=== PATIENT | male | born 1950 | race Caucasian/White ===

== ENCOUNTER 2021-06-21 21:10 | Emergency (ER) | payer MEDICARE, OTHER ==
[2021-06-21] MEDS ORDERED: Sodium Chloride 0.9% 1,000 ML ONE (21:44)
[2021-06-21] MEDS ORDERED: Ketorolac Tromethamine 30 MG/ML VIAL ONE (21:44)
[2021-06-21 21:57] LABS: Hemoglobin 18.5 g/dL (14.0-18.0); Mean Corpuscular HGB CONC 32.9 g/dL (32.0-36.0); Mean Corpuscular Hemoglobin 30.1 pg (27.0-31.0); Mean Corpuscular Volume 91.3 fL (78.0-98.0); Mean Platelet Volume 7.4 fL (7.4-10.4); Platelet Count 266 thou/uL (130-400); RBC Distribution Width 11.2 % (11.5-14.5); Red Blood Cell (RBC) Count 6.13 mill/uL (4.70-6.10); White Blood Cell (WBC) Count 19.7 thou/uL (4.8-10.8)
[2021-06-21 22:05] LABS: Band 12 % (5-11); Eosinophils 1 % (0-10); Lymphocytes 23 % (21-51); MDiff Complete? YES; Metamyelocyte 2 % (0-0); Monocytes 8 % (0-10); Neutrophil 54 % (42-75); Platelet Morphology Comment Appears Adequate; RBC Morphology Normal
[2021-06-21 22:09] LABS: ALT (SGPT) 47 U/L (8-55); AST (SGOT) 25 U/L (5-34); Albumin 4.2 g/dL (3.4-4.8); Alkaline Phosphatase 58 U/L (40-110); Anion Gap 15 mmol/L (10-20); BUN (Urea Nitrogen) 28 mg/dL (8.4-25.7); Bilirubin, Total 0.4 mg/dL (0.2-1.2); Calc. Creatinine Clearance 0 mL/min (70-130); Calcium 9.6 mg/dL (7.8-10.44); Carbon Dioxide 26 mmol/L (23-31); Chloride 101 mmol/L (98-107); Globulin 3.2 g/dL (2.4-3.5); Glucose 171 mg/dL (80-115); Lipase 62 U/L (8-78); Potassium 5.3 mmol/L (3.5-5.1); Protein, Total 7.4 g/dL (5.8-8.1); Sodium 137 mmol/L (136-145)
[2021-06-21] MEDS ORDERED: Morphine 4 MG/ML VIAL ONE (22:10)
[2021-06-21] MEDS ORDERED: Ondansetron PF 4 MG/2 ML Vial ONE (22:10)
[2021-06-21 23:43] LABS: Bilirubin Negative (Negative); Blood, Urine Trace (Negative); Clarity Clear (Clear); Glucose, Urine (Dipstick) Negative (Negative); Ketone, Urine Negative (Negative); Leukocyte Negative (Negative); Nitrite Negative (Negative); Protein, Urine (Dipstick) Negative (Neg-Trace); Specific Gravity, Urine 1.027 (1.002-1.036); Urobilinogen 0.2 mg/dL (Less than 2); pH, Urine 5.5 (5.0-9.0)
[2021-06-21 23:45] LABS: Bacteria/HPF Rare-Few HPF (None Seen); RBC/HPF 0-3 HPF (0-3); Squamous Epithelial 0-3 HPF (0-3); WBC/HPF 0-3 HPF (0-3)
== END 2021-06-22 00:40 | disposition home or self-care (01) ==
LOC: NAV ERS 21:10
DX: N21.0 Calculus in bladder (principal); E87.5 Hyperkalemia; D72.829 Elevated white blood cell count, unspecified; I10 Essential (primary) hypertension
CPT/HCPCS: 74176; 80053; 81003; 81015; 83605; 83690; 84484; 85025; 93005; 94760; 96374; 96375; J1885; J2270; J2405; J7050

== ENCOUNTER 2021-06-23 00:21 | Emergency (ER) | payer MEDICARE, OTHER ==
[2021-06-23] MEDS ORDERED: Sodium Chloride 0.9% 100 ML ONE (01:28)
[2021-06-23] MEDS ORDERED: Sodium Chloride 0.9% 1,000 ML ONE (01:28)
[2021-06-23] MEDS ORDERED: Lidocaine 2% PF 100 mg/5 ml Syringe ONE (01:28)
== END 2021-06-23 03:49 | disposition home or self-care (01) ==
LOC: NAV ERS 00:21
DX: N23 Unspecified renal colic (principal); I10 Essential (primary) hypertension
CPT/HCPCS: 96374; J2001; J7050